=== PATIENT | male | born 1955 | race Caucasian/White ===

== ENCOUNTER 2021-09-29 18:17 | Inpatient (IN) | payer OTHER, MEDICAID ==
[~2021-09-29] VITALS: Ht 188 cm; Wt 84.9 kg
[2021-09-29 19:14] LABS: Basophils # (auto) 0.1 10 ^3/uL (0-0.2); Eosinophils # (auto) 0.1 10 ^3/uL (0-0.8); Eosinophils % (auto) 1.5 % (0.0-7.0); Hematocrit 43.4 % (41.0-53.0); Hemoglobin 14.7 g/dL (13.5-17.5); Lymphocytes # (auto) 1.7 10 ^3/uL (0.4-5.4); Mean Corpuscular Hemoglobin 30.5 pg (28.0-32.0); Mean Corpuscular Volume 89.9 fL (80.0-100.0); Monocytes # (auto) 1.1 10 ^3/uL (0-1.3); Monocytes % (auto) 12.9 % (0.0-12.0); Neutrophils # (auto) 5.4 10 ^3/uL (1.6-8.6); Neutrophils % (auto) 64.6 % (37.0-80.0); Nucleated Red Blood Cells % 0.1 %; Red Blood Cells 4.83 10^6/uL (4.5-5.90); Red Cell Distribution Width 14.9 % (11.8-14.3); White Blood Cell 8.4 10^3/uL (4.4-10.8)
[2021-09-29 19:38] LABS: Albumin 3.5 g/dL (3.4-5.0); Calcium 8.6 mg/dL (8.5-10.1); Potassium 4.1 mmol/L (3.5-5.1)
[2021-09-29 19:43] LABS: BUN/Creatinine Ratio 16.3; Bilirubin, Total 0.7 mg/dL (0.2-1.0); Total Protein 6.8 g/dL (6.4-8.2)
[2021-09-29] MEDS ORDERED: AMIODARONE 450mg/250ml AE 250 ML IV ONE (19:55)
[2021-09-29] MEDS ORDERED: AMIODARONE 450mg/250ml AE 250 ML IV SCH ×2 (20:00→22:00)
[2021-09-29] MEDS ORDERED: NITROGLYCERIN 0.4 MG SL TAB SL PRN (22:00)
[2021-09-29] MEDS: SODIUM CHLORIDE 0.9% 1,000 ML IV SCH (22:24)
[2021-09-29] MEDS: ATORVASTATIN 20 MG TAB PO SCH (23:00)
[2021-09-29 23:03] LABS: INR 1.08 (0.9-1.15)
[2021-09-29] MEDS: ONDANSETRON HCL 4 MG/2 ML VIAL IV PRN (23:10)
[2021-09-29] MEDS: MORPHINE SULFATE INJ 2 MG/ml SYRG IV PRN (23:11)
[2021-09-30] MEDS ORDERED: AMIODARONE 450mg/250ml AE 250 ML IV SCH (02:00)
[2021-09-30] MEDS: AMIODARONE 450mg/250ml AE 250 ML IV SCH ×2 (02:09→18:12)
[2021-09-30 04:42] LABS: Basophils # (auto) 0.1 10 ^3/uL (0-0.2); Basophils % (auto) 0.8 % (0.0-2.0); Eosinophils # (auto) 0.3 10 ^3/uL (0-0.8); Eosinophils % (auto) 3.6 % (0.0-7.0); Hematocrit 43.2 % (41.0-53.0); Hemoglobin 14.2 g/dL (13.5-17.5); Lymphocytes # (auto) 1.4 10 ^3/uL (0.4-5.4); Lymphocytes % (auto) 18.5 % (10.0-50.0); Mean Corpuscular Hemoglobin 29.6 pg (28.0-32.0); Mean Corpuscular Hgb Conc. 32.9 g/dL (32.0-36.0); Mean Corpuscular Volume 90.1 fL (80.0-100.0); Monocytes # (auto) 0.9 10 ^3/uL (0-1.3); Monocytes % (auto) 11.2 % (0.0-12.0); Neutrophils % (auto) 65.9 % (37.0-80.0); Red Blood Cells 4.79 10^6/uL (4.5-5.90); Red Cell Distribution Width 15.5 % (11.8-14.3); White Blood Cell 7.6 10^3/uL (4.4-10.8)
[2021-09-30 04:59] LABS: INR 1.05 (0.9-1.15); Partial Thromboplastin Time 29.6 sec (23.6-33.0)
[2021-09-30 05:04] LABS: Albumin 3.2 g/dL (3.4-5.0); Calcium 8.4 mg/dL (8.5-10.1); Potassium 4.1 mmol/L (3.5-5.1)
[2021-09-30 05:09] LABS: BUN/Creatinine Ratio 15.7; Bilirubin, Total 0.8 mg/dL (0.2-1.0); Total Protein 6.4 g/dL (6.4-8.2)
[2021-09-30] MEDS: MORPHINE SULFATE INJ 2 MG/ml SYRG IV PRN ×4 (06:08→20:48)
[2021-09-30] MEDS: ONDANSETRON HCL 4 MG/2 ML VIAL IV PRN (06:08)
[2021-09-30] MEDS: MEXILETINE HYDROCHLORIDE 150 MG CAP PO SCH ×2 (12:28→20:50)
[2021-09-30] MEDS: PANTOPRAZOLE 40 MG TAB PO SCH (12:28)
[2021-09-30] MEDS: ASPirin 81 mg TAB PO SCH (12:28)
[2021-09-30 13:00] VITALS: BP 155/90
[2021-09-30] MEDS: METOPROLOL TARTRATE 50 MG TAB PO SCH ×2 (13:00→20:49)
[2021-09-30] MEDS: SODIUM CHLORIDE 0.9% 1,000 ML IV SCH (13:00)
[2021-09-30] MEDS ORDERED: ENOXAPARIN SOD 40 MG/0.4 ML SYRINGE SC ONE (13:30)
[2021-09-30] MEDS ORDERED: ACETAMINOPHEN 325 MG TAB PO PRN (13:30)
[2021-09-30] MEDS ORDERED: PANT40TA2 PO (13:46)
[2021-09-30] MEDS ORDERED: HYDR-4902 PO (13:46)
[2021-09-30] MEDS ORDERED: CIME1TAB7 PO (13:47)
[2021-09-30] MEDS ORDERED: AMIO200T33 PO (13:48)
[2021-09-30] MEDS ORDERED: [UNRECOGNIZED DRUG - CODE] PO (13:48)
[2021-09-30] MEDS ORDERED: NIF10C PO (13:49)
[2021-09-30] MEDS ORDERED: MET50T PO (13:50)
[2021-09-30] MEDS ORDERED: PRAV20TA3 PO (13:51)
[2021-09-30 16:47] VITALS: BP 119/72
[2021-09-30] MEDS: ATORVASTATIN 20 MG TAB PO SCH (20:49)
[2021-09-30 22:00] VITALS: BP 130/70
[2021-10-01] VITALS (10 sets, daily range): BP systolic 123–149; BP diastolic 67–95
[2021-10-01] MEDS: SODIUM CHLORIDE 0.9% 1,000 ML IV SCH (00:56)
[2021-10-01] MEDS: MORPHINE SULFATE INJ 2 MG/ml SYRG IV PRN ×5 (00:56→21:06)
[2021-10-01 05:30] LABS: Basophils # (auto) 0.1 10 ^3/uL (0-0.2); Basophils % (auto) 0.8 % (0.0-2.0); Eosinophils # (auto) 0.3 10 ^3/uL (0-0.8); Eosinophils % (auto) 3.6 % (0.0-7.0); Hematocrit 42.5 % (41.0-53.0); Hemoglobin 13.8 g/dL (13.5-17.5); Lymphocytes # (auto) 1.3 10 ^3/uL (0.4-5.4); Lymphocytes % (auto) 16.3 % (10.0-50.0); Mean Corpuscular Hemoglobin 29.4 pg (28.0-32.0); Mean Corpuscular Hgb Conc. 32.5 g/dL (32.0-36.0); Mean Corpuscular Volume 90.7 fL (80.0-100.0); Monocytes # (auto) 0.8 10 ^3/uL (0-1.3); Monocytes % (auto) 10.8 % (0.0-12.0); Neutrophils # (auto) 5.3 10 ^3/uL (1.6-8.6); Neutrophils % (auto) 68.5 % (37.0-80.0); Red Blood Cells 4.68 10^6/uL (4.5-5.90); Red Cell Distribution Width 14.8 % (11.8-14.3); White Blood Cell 7.7 10^3/uL (4.4-10.8)
[2021-10-01 05:46] LABS: Calcium 8.4 mg/dL (8.5-10.1); Potassium 4.7 mmol/L (3.5-5.1)
[2021-10-01 05:47] LABS: BUN/Creatinine Ratio 20.8
[2021-10-01] MEDS ORDERED: LIDOCAINE 2%HCL (LOCAL ANESTH.) INJ 10ml MDV ONE ×2 (07:25→07:53)
[2021-10-01] MEDS ORDERED: ANGIOMAX 250 MG VIAL IV ONE (07:28)
[2021-10-01] MEDS ORDERED: fentaNYL CITRATE 100 MCG/2 ML VL ONE (07:29)
[2021-10-01] MEDS ORDERED: MIDAZOLAM HCL 2MG/2ML 2ml VIAL (1mg/ml) ONE (07:29)
[2021-10-01] MEDS ORDERED: SODIUM CHL 0.9% 0 ML ONE (07:29)
[2021-10-01] MEDS ORDERED: HEPARIN SODIUM (PORCINE) 5000 UNITS/ML 1ML VIAL ONE (07:29)
[2021-10-01] MEDS ORDERED: VERAPAMIL 2.5MG/ML INJ 2ML VIAL IV ONE (07:29)
[2021-10-01] MEDS ORDERED: IODIXANOL 320MG/ML 100ML BTL IV ONE (08:06)
[2021-10-01] MEDS ORDERED: MEX150C PO (09:03)
[2021-10-01] MEDS ORDERED: SACU1TAB PO (09:03)
[2021-10-01] MEDS ORDERED: CAR125T PO (09:03)
[2021-10-01] MEDS ORDERED: AMIO200T33 PO (09:03)
[2021-10-01] MEDS ORDERED: ASPI-325 PO (09:03)
[2021-10-01] MEDS ORDERED: FUROSEMIDE 40 MG TAB PO ONE (09:30)
[2021-10-01] MEDS: ASPirin 81 mg TAB PO SCH (10:03)
[2021-10-01] MEDS: SACUBITRIL-VALSARTAN 24mg/26mg TAB PO SCH ×2 (10:03→22:35)
[2021-10-01] MEDS: CARVEDILOL 12.5 MG TAB PO SCH ×2 (10:03→22:35)
[2021-10-01] MEDS: AMIODARONE HCL 200 MG TAB PO SCH ×2 (10:04→22:35)
[2021-10-01] MEDS: PANTOPRAZOLE 40 MG TAB PO SCH (10:05)
[2021-10-01] MEDS: MEXILETINE HYDROCHLORIDE 150 MG CAP PO SCH ×2 (10:57→22:36)
[2021-10-01] MEDS: HYDROcodone-ACET 5/325MG TAB PO PRN (18:43)
[2021-10-01] MEDS: ONDANSETRON HCL 4 MG/2 ML VIAL IV PRN (18:43)
[2021-10-01] MEDS: ATORVASTATIN 20 MG TAB PO SCH (22:36)
[2021-10-02] MEDS: HYDROcodone-ACET 5/325MG TAB PO PRN ×3 (01:05→21:27)
[2021-10-02 05:23] VITALS: BP 128/79
[2021-10-02] MEDS: MORPHINE SULFATE INJ 2 MG/ml SYRG IV PRN ×2 (05:54→18:45)
[2021-10-02] MEDS ORDERED: CLOPIDOGREL 300 MG TAB PO ONE (06:00)
[2021-10-02 07:09] LABS: Basophils # (auto) 0 10 ^3/uL (0-0.2); Basophils % (auto) 0.6 % (0.0-2.0); Eosinophils # (auto) 0.3 10 ^3/uL (0-0.8); Eosinophils % (auto) 3.4 % (0.0-7.0); Hematocrit 44.5 % (41.0-53.0); Hemoglobin 14.6 g/dL (13.5-17.5); Lymphocytes # (auto) 1.2 10 ^3/uL (0.4-5.4); Lymphocytes % (auto) 15.8 % (10.0-50.0); Mean Corpuscular Hemoglobin 29.8 pg (28.0-32.0); Mean Corpuscular Hgb Conc. 32.9 g/dL (32.0-36.0); Mean Corpuscular Volume 90.6 fL (80.0-100.0); Monocytes % (auto) 12.4 % (0.0-12.0); Neutrophils # (auto) 5.2 10 ^3/uL (1.6-8.6); Neutrophils % (auto) 67.8 % (37.0-80.0); Red Blood Cells 4.91 10^6/uL (4.5-5.90); Red Cell Distribution Width 14.8 % (11.8-14.3); White Blood Cell 7.7 10^3/uL (4.4-10.8)
[2021-10-02 07:31] LABS: BUN/Creatinine Ratio 19.2; Calcium 8.5 mg/dL (8.5-10.1); Potassium 3.8 mmol/L (3.5-5.1)
[2021-10-02 09:00] VITALS: BP 137/78
[2021-10-02] MEDS: MEXILETINE HYDROCHLORIDE 150 MG CAP PO SCH ×2 (09:25→21:17)
[2021-10-02] MEDS: ASPirin 81 mg TAB PO SCH (09:26)
[2021-10-02] MEDS: PANTOPRAZOLE 40 MG TAB PO SCH (09:26)
[2021-10-02] MEDS: SACUBITRIL-VALSARTAN 24mg/26mg TAB PO SCH ×2 (09:26→21:17)
[2021-10-02] MEDS: CARVEDILOL 12.5 MG TAB PO SCH ×2 (09:27→21:22)
[2021-10-02] MEDS: AMIODARONE HCL 200 MG TAB PO SCH ×2 (09:28→21:21)
[2021-10-02] MEDS: ISOSORBIDE MONONITRATE ER 60 MG TAB PO SCH (09:29)
[2021-10-02] MEDS: CLOPIDOGREL BISULFATE 75 MG TAB PO SCH (09:29)
[2021-10-02 13:00] VITALS: BP 108/70
[2021-10-02 16:28] VITALS: BP 100/51
[2021-10-02] MEDS: ATORVASTATIN 20 MG TAB PO SCH (21:17)
[2021-10-02 22:00] VITALS: BP 101/50
[2021-10-03] MEDS: MORPHINE SULFATE INJ 2 MG/ml SYRG IV PRN ×3 (00:10→10:26)
[2021-10-03 05:00] VITALS: BP 126/72
[2021-10-03] MEDS: ONDANSETRON HCL 4 MG/2 ML VIAL IV PRN (05:57)
[2021-10-03] MEDS ORDERED: IOHEXOL 350 MG/ML 100ML IJ ONE (07:15)
[2021-10-03 07:27] LABS: Basophils # (auto) 0.1 10 ^3/uL (0-0.2); Basophils % (auto) 0.6 % (0.0-2.0); Eosinophils # (auto) 0.3 10 ^3/uL (0-0.8); Eosinophils % (auto) 3.4 % (0.0-7.0); Hematocrit 42.9 % (41.0-53.0); Hemoglobin 14.7 g/dL (13.5-17.5); Lymphocytes # (auto) 1.3 10 ^3/uL (0.4-5.4); Lymphocytes % (auto) 16.1 % (10.0-50.0); Mean Corpuscular Hemoglobin 30.6 pg (28.0-32.0); Mean Corpuscular Hgb Conc. 34.3 g/dL (32.0-36.0); Mean Corpuscular Volume 89.1 fL (80.0-100.0); Monocytes % (auto) 11.9 % (0.0-12.0); Neutrophils # (auto) 5.5 10 ^3/uL (1.6-8.6); Nucleated Red Blood Cells % 0.2 %; Red Blood Cells 4.82 10^6/uL (4.5-5.90); Red Cell Distribution Width 14.7 % (11.8-14.3); White Blood Cell 8.1 10^3/uL (4.4-10.8)
[2021-10-03 07:29] LABS: Calcium 8.8 mg/dL (8.5-10.1); Potassium 3.9 mmol/L (3.5-5.1)
[2021-10-03 07:31] LABS: BUN/Creatinine Ratio 19.2
[2021-10-03 09:00] VITALS: BP 138/98
[2021-10-03] MEDS: MEXILETINE HYDROCHLORIDE 150 MG CAP PO SCH (10:23)
[2021-10-03] MEDS: PANTOPRAZOLE 40 MG TAB PO SCH (10:23)
[2021-10-03] MEDS: ASPirin 81 mg TAB PO SCH (10:23)
[2021-10-03] MEDS: CLOPIDOGREL BISULFATE 75 MG TAB PO SCH (10:23)
[2021-10-03] MEDS: CARVEDILOL 12.5 MG TAB PO SCH (10:24)
[2021-10-03] MEDS: ISOSORBIDE MONONITRATE ER 60 MG TAB PO SCH (10:24)
[2021-10-03] MEDS: AMIODARONE HCL 200 MG TAB PO SCH (10:24)
[2021-10-03] MEDS: SACUBITRIL-VALSARTAN 24mg/26mg TAB PO SCH (10:24)
[2021-10-03 13:00] VITALS: BP 140/90
[2021-10-03] MEDS ORDERED: ISOS1TAB28 PO (13:51)
== END 2021-10-03 14:50 | disposition home health service (06) | DRG 280 ==
LOC: ER 18:17 → TELE 21:55 → TELE-WESTW 09-30 09:02
PROVIDERS: ADMIT Nurse Practitioner; ATTEND Internal Medicine
PROC: 4A023N7 Measurement of Cardiac Sampling and Pressure, Left Heart, Percutaneous Approach (ICD-10-PCS; principal; 2021-10-01)
PROC: B211YZZ Fluoroscopy of Multiple Coronary Arteries using Other Contrast (ICD-10-PCS; 2021-10-01)
PROC: B215YZZ Fluoroscopy of Left Heart using Other Contrast (ICD-10-PCS; 2021-10-01)
DX: I21.4 Non-ST elevation (NSTEMI) myocardial infarction (principal); J96.01 Acute respiratory failure with hypoxia; I42.8 Other cardiomyopathies; I47.2 Ventricular tachycardia; I50.20 Unspecified systolic (congestive) heart failure; J98.11 Atelectasis; G89.4 Chronic pain syndrome; K21.9 Gastro-esophageal reflux disease without esophagitis; Z20.822 Contact with and (suspected) exposure to COVID-19; E78.5 Hyperlipidemia, unspecified; F17.210 Nicotine dependence, cigarettes, uncomplicated; I11.0 Hypertensive heart disease with heart failure; I25.10 Atherosclerotic heart disease of native coronary artery without angina pectoris; Z79.899 Other long term (current) drug therapy; Z82.3 Family history of stroke; Z95.810 Presence of automatic (implantable) cardiac defibrillator
CPT/HCPCS: 36415; 36600; 71045; 71275; 80048; 80053; 82805; 83880; 84443; 84484; 85025; 85610; 85730; 93005; 93306; 93458; 96365; 96366; 96375; 99152; 99153; 99291; G0378; J2001; J2250; J2405; Q9967